=== PATIENT | male | born 1960 | race Asian ===

== ENCOUNTER 2022-11-28 10:05 | Emergency (ER) | payer OTHER ==
[~2022-11-28] VITALS: Ht 162.6 cm; Wt 77.1 kg
[2022-11-28 10:07] VITALS: TEMP 97.2
[2022-11-28 10:49] LABS: PLATELET COUNT 192 K/uL (142-355)
[2022-11-28 11:05] LABS: PARTIAL THROMBOPLASTIN TIME 24.3 SECONDS (24.5-33.6)
[2022-11-28 13:12] VITALS: BP 137/68
== END 2022-11-28 14:05 | disposition home or self-care (01) ==
LOC: ED 10:05
PROVIDERS: Family Medicine
DX: R42 Dizziness and giddiness (principal); R73.9 Hyperglycemia, unspecified; Z99.2 Dependence on renal dialysis
CPT/HCPCS: 36415; 80053; 82550; 84484; 85027; 85610; 85730; 93005; 99283

== ENCOUNTER 2022-12-24 11:44 | Outpatient (CLI) | payer OTHER | END 2022-12-24 20:42 | disposition home or self-care (01) | LOC: RAD 11:44 | PROVIDERS: ATTEND Nurse Practitioner Family | DX: R06.02 Shortness of breath (principal); J44.9 Chronic obstructive pulmonary disease, unspecified ==